=== PATIENT | female | born 1965 | race Two or more races ===

== ENCOUNTER 2024-04-20 06:25 | Day surgery (SDC) | payer OTHER ==
[2024-04-18 12:45] VITALS: BMI 26.2
[2024-04-20] MEDS ORDERED: BUPIVACAINE HCL/PF 0.25% (2.5MG/ML) 10 ML VIAL ONE (07:12)
[2024-04-20] MEDS ORDERED: LIDOCAINE HCL/PF 1% SDV 5ML VIAL ONE (07:12)
[2024-04-20] MEDS ORDERED: BUPIVACAINE HCL/PF 0.5% (5MG/ML) 10 ML VIAL ONE (07:12)
[2024-04-20] MEDS ORDERED: DEXAMETHASONE SOD PHOSPHATE 10 MG/1 ML VIAL ONE (07:13)
[2024-04-20 08:39] VITALS: BP 135/87; PULSE 84; RESP 18; TEMP 97.1
[2024-04-20] MEDS: LIDOCAINE 1% P/F 10 MG/ML VIAL PNB ONE (11:01)
[2024-04-20] MEDS: DEXAMETHASONE SOD PHOSPHATE 10 MG/1 ML VIAL IVPUSH ONE (11:02)
[2024-04-20] MEDS: IOHEXOL 180 MG/1 ML ML IJ ONE (11:03)
[2024-04-20] MEDS ORDERED: ACETAMINOPHEN 500 MG TABLET (FP) PO PRN (11:17)
== END 2024-04-20 11:43 | disposition home or self-care (01) ==
LOC: JASU-SURG 06:25
PROVIDERS: ATTEND Pain Medicine Pain Medicine
PROC: 3E0R3BZ Introduction of Anesthetic Agent into Spinal Canal, Percutaneous Approach (ICD-10-PCS; 2024-04-20)
PROC: 3E0R33Z Introduction of Anti-inflammatory into Spinal Canal, Percutaneous Approach (ICD-10-PCS; principal; 2024-04-20 10:15)
DX: M48.061 Spinal stenosis, lumbar region without neurogenic claudication (principal); M54.16 Radiculopathy, lumbar region
CPT/HCPCS: 76000-TC-FY; J1100

== ENCOUNTER 2024-05-19 04:06 | Day surgery (SDC) | payer OTHER ==
[2024-05-18 09:30] VITALS: BMI 26.5
[2024-05-19] MEDS ORDERED: TRIAMCINOLONE ACET 40MG/1ML VIAL ONE (07:26)
[2024-05-19] MEDS ORDERED: LIDOCAINE HCL/PF 1% SDV 5ML VIAL ONE (07:26)
[2024-05-19] MEDS ORDERED: BUPIVACAINE HCL/PF 0.5% (5MG/ML) 10 ML VIAL ONE (07:26)
[2024-05-19 10:04] VITALS: RESP 18
[2024-05-19] MEDS: LIDOCAINE HCL 1% PRESERVATIVE FREE - 30ML VIAL IJ ONE (12:00)
[2024-05-19] MEDS: TRIAMCINOLONE ACETONIDE 40 MG/ML 10 ML VIAL IJ ONE (12:00)
[2024-05-19] MEDS: BUPIVACAINE HCL/PF 0.5% (5 MG/ML) 30 ML VIAL IJ ONE (12:01)
[2024-05-19 13:12] VITALS: BP 153/95; PULSE 84; TEMP 97.1
[2024-05-19] MEDS ORDERED: ACETAMINOPHEN 500 MG TABLET (FP) PO PRN (15:54)
== END 2024-05-19 13:15 | disposition home or self-care (01) ==
LOC: JASU-SURG 04:06
PROVIDERS: ATTEND Pain Medicine Pain Medicine
PROC: 3E023BZ Introduction of Anesthetic Agent into Muscle, Percutaneous Approach (ICD-10-PCS; 2024-05-19)
PROC: 3E0233Z Introduction of Anti-inflammatory into Muscle, Percutaneous Approach (ICD-10-PCS; principal; 2024-05-19 11:30)
DX: M53.3 Sacrococcygeal disorders, not elsewhere classified (principal)
CPT/HCPCS: 76000-TC-FY